=== PATIENT | female | born 1965 | race American Indian/Alaskan Native ===

== ENCOUNTER 2017-03-09 17:47 | Emergency (ER) | payer OTHER ==
[2017-03-09 17:50] VITALS: BMI 27.6
[2017-03-09 17:52] VITALS: BP 109/61; PULSE 90; RESP 18; TEMP 99.1
--- NOTE | 2017-03-09 18:14 | ED PDOC ---
Arrival/HPI - General Chief Complaint: Abnormal Skin Integrity Time Seen by Provider: 03/09/17 17:55 Historian: Patient, Family (daughter) - History of Present Illness Narrative History of Present Illness (Text): 03/09/17 18:11 This 52 yo female presents to this ED c/o rash since last night. Patient stated after using a perfume last night, she developed itching. This morning she noticed a generalized rash. Denies dysphagia, sob, wheezing, sick contact , fever, sore throat, or recent travel. Time/Duration: Other (see hpi) Context: Home Past Medical History - Provider Review Nursing Documentation Reviewed: Yes - Infectious Disease Hx of Infectious Diseases: None - Tetanus Immunization Tetanus Immunization: Unknown - Pulmonary Other/Comment: sarcoid - Psychiatric Hx Depression: No Hx Emotional Abuse: No Hx Physical Abuse: No Hx Substance Use: No - Surgical History Hx Section: Yes - Anesthesia Hx Anesthesia Reactions: No Hx Malignant Hyperthermia: No - Suicidal Assessment Feels Threatened In Home Enviroment: No Family/Social History - Physician Review Nursing Documentation Reviewed: Yes Family/Social History: Other (non-contributory) Smoking Status: Never Smoked Hx Alcohol Use: Yes Frequency of alcohol use: Socially Hx Substance Use: No Hx Substance Use Treatment: No Allergies/Home Meds Allergies/Adverse Reactions: Allergies No Known Allergies Allergy (Verified 12/19/11 11:24) Review of Systems - Review of Systems Constitutional: Normal. absent: Fatigue, Weight Change, Fevers Eyes: Normal ENT: Normal. absent: Sore Throat, Rhinorrhea Respiratory: Normal. absent: SOB, Cough Cardiovascular: Normal. absent: Chest Pain, Palpitations Gastrointestinal: Normal. absent: Abdominal Pain, Nausea, Vomiting Genitourinary Female: Normal Musculoskeletal: Normal Skin: Rash, Pruritis. absent: Skin Lesions, Laceration, Abscess, Ulcer, Cellulitis Neurological: Normal. absent: Headache, Dizziness Endocrine: Normal Hemo/Lymphatic: Normal Psychiatric: Normal Physical Exam Vital Signs Temp Pulse Resp BP Pulse Ox 03/09/17 17:48 99.1 F 90 18 109/61 96 Temperature: Afebrile Blood Pressure: Normal Pulse: Regular Respiratory Rate: Normal Appearance: Positive for: Well-Appearing, Non-Toxic, Comfortable Pain Distress: None Mental Status: Positive for: Alert and Oriented X 3 - Systems Exam Head: Present: Atraumatic, Normocephalic Pupils: Present: PERRL Extroacular Muscles: Present: EOMI Conjunctiva: Present: Normal Mouth: Present: Moist Mucous Membranes Neck: Present: Normal Range of Motion Respiratory/Chest: Present: Clear to Auscultation, Good Air Exchange. No: Respiratory Distress, Accessory Muscle Use Cardiovascular: Present: Regular Rate and Rhythm, Normal S1, S2. No: Murmurs Abdomen: Present: Normal Bowel Sounds. No: Tenderness, Distention, Peritoneal Signs Back: Present: Normal Inspection Upper Extremity: Present: Normal Inspection. No: Cyanosis, Edema Lower Extremity: Present: Normal Inspection. No: Edema Neurological: Present: GCS=15, CN II-XII Intact, Speech Normal Skin: Present: Warm, Dry, Rashes (urticaria like rash over trunk and extremities. Rash blanches on palpation), Normal Color Psychiatric: Present: Alert, Oriented x 3, Normal Insight, Normal Concentration Medical Decision Making ED Course and Treatment: 03/09/17 19:43 Patient feels well on her normal state of health. Rash has improved. Patient denies wheezing. lungs CTA b/l. Patient understood risk of using Prednisone or Solumedrol including, AVN, osteoporosis, DM, glaucoma to cite a few. Patient agrees with treatment. Patient was recommended to return to ED if rash returns. to avoid using perfume. Re-evaluation Time: 19:45 Reassessment Condition: Re-examined, Improved - Medication Orders Current Medication Orders: Discontinued Medications Diphenhydramine HCl (Benadryl) 50 mg IVP STAT STA Stop: 03/09/17 18:16 Last Admin: 03/09/17 18:45 Dose: 50 mg Famotidine (Pepcid 20mg/50ml Premix) 20 mg in 50 mls @ 100 mls/hr IVPB STAT STA Stop: 03/09/17 18:44 Last Admin: 03/09/17 18:45 Dose: 100 mls/hr Methylprednisolone (Solu-Medrol) 125 mg IVP STAT STA Stop: 03/09/17 18:16 Last Admin: 03/09/17 18:45 Dose: 125 mg Disposition/Present on Arrival - Present on Arrival Any Indicators Present on Arrival: No History of DVT/PE: No History of Uncontrolled Diabetes: No Urinary Catheter: No History of Decub. Ulcer: No History Surgical Site Infection Following: None - Disposition Have Diagnosis and Disposition been Completed?: Yes Diagnosis: Urticaria Disposition: HOME/ ROUTINE Disposition Time: 19:45 Patient Plan: Discharge Condition: GOOD Discharge Instructions (ExitCare): Urticaria (ED) Additional Instructions: Call private doctor for follow up visit in 1-2 days. take medication as instructed. return to emergency if symptoms returns, shortness of breath, wheezing, or fever Prescriptions: Famotidine [Pepcid] 40 mg PO DAILY #10 tablet Hydroxyzine Pamoate [Vistaril] 25 mg PO TID PRN #20 capsule PRN Reason: Itching / Pruritus Prednisone [Deltasone] 60 mg PO DAILY #12 tablet Forms: [employer] (Slovak)
[2017-03-09] MEDS ORDERED: Famotidine 20mg/50ml 20 MG/50 ML BAG IVPB STA (18:15)
[2017-03-09] MEDS ORDERED: DiphenhydrAMINE 50 mg/ml Inj IVP STA (18:15)
[2017-03-09 19:54] VITALS: O2SAT 99
== END 2017-03-09 19:54 | disposition home or self-care (01) ==
LOC: ED 17:47
DX: L50.9 Urticaria, unspecified (principal)
CPT/HCPCS: 96374; 96375; 99283; J1200; J2930